=== PATIENT | female | born 1935 | race Caucasian/White ===

== ENCOUNTER → 2017-06-17 | Outpatient (CLI) | payer MEDICARE, OTHER ==
--- NOTE | 2017-06-17 09:49 | XR ---
Right wrist HISTORY: Pain 4 views of the right wrist, no comparisons Some remodeling present at the radiocarpal joint. Joint space loss, hypertrophic change present at th e carpometacarpal joint of the first digit. Alignment is maintained. Bone mineralization is reduced. No fracture or dislocation. IMPRESSION: Osteoarthritis.
== END | disposition home or self-care (01) ==
LOC: RADXRMAIN 09:05
PROVIDERS: ATTEND Internal Medicine
DX: M19.031 Primary osteoarthritis, right wrist (principal)

== ENCOUNTER → 2018-09-21 | Outpatient (CLI) | payer MEDICARE, OTHER ==
--- NOTE | 2018-09-21 12:01 | MR ---
EXAMINATION TYPE: MR brain and iac wo/w con DATE OF EXAM: 09/21/2018 COMPARISON: NONE HISTORY: Acoustic nerve disorder. Left-sided diplopia and weakness. No hearing loss or dizziness per patient history sheet. TECHNIQUE: Multiplanar, multisequence images of the brain and brainstem is performed without and with IV contras t, utilizing 7.5 mL intravenous Gadavist . FINDINGS: There is encephalomalacia from a prior lacunar infarct within the deep white matter of the right padmini na radiata just cranial to the basal ganglia. Nonspecific T2/FLAIR hyperintensity is seen within the case, central midbrain, insular cortices, and periventricular as well as subcortical white matter. Th is is overall moderate burden. There is no abnormal enhancement of these white matter changes. Diffusion weighted images demonstrate no evidence of a recent infarct or other diffusion abnormality. There is no extra-axial fluid collection. The ventricular system and cisternal spaces are normal i n size and appearance. The brain volume is age appropriate. Midline structures demonstrate normal morphology. The craniocervical junction appears within normal limits. Post contrast images demonstrate no abnormal enhancement. The left vertebral artery is noted to be diminutive in caliber. The dural venous sinuses appear patent. There is mild mucosal thickenin g of the ethmoid sinuses. The remaining visualized sinuses are clear and the globes are intact. There is no suspicious enhancement along the courses of the 7th or 8th cranial nerves. No cerebellar pontine angle mass is seen. IMPRESSION: 1. No evidence of abnormal intracranial enhancement. No cerebellar pontine angle mass or abnormal enh ancement of the 7th or 8th cranial nerves. 2. Old lacunar infarct of the right mendoza radiata. 3. 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
== END | disposition home or self-care (01) ==
LOC: RADMRIMAIN 09:45
PROVIDERS: ATTEND Otolaryngology
DX: R90.89 Other abnormal findings on diagnostic imaging of central nervous system (principal); I73.9 Peripheral vascular disease, unspecified
CPT/HCPCS: 70553; A9585

== ENCOUNTER → 2019-04-14 | Outpatient (CLI) | payer MEDICARE, OTHER ==
--- NOTE | 2019-04-14 14:37 | BD ---
EXAMINATION TYPE: Axial Bone Density DATE OF EXAM: 04/14/2019 COMPARISON: NONE CLINICAL HISTORY: M 86.80 Height: 59 IN Weight: 188 LBS FRAX RISK QUESTIONS: Glucocorticoids (More than 3mos): YES 4 MG/DAY FOR 11 MONTHS (Ex: prednisone, prednisolone, methylprednisolone, dexamethasone, and hydrocortisone). RISK FACTORS HISTORY OF: Active: YES Postmenopausal woman: AGE 52 Lost more than 2 inches in height since high school: YES 3" MEDICATIONS: Prednisone or other steroids: YES 4 MG/DAY FOR 11 MONTHS Thyroid Medications: YES Which medication: Levothyroxine LIOTHYRONINE How Lon+ YEARS Osteoporosis Medications: NOT NOW Which medication: Prolia How Long: TOOK FOR 2 YEARS. Additional Medications: CALCIUM, VIT D,COLACE, GLUCOSAMINE, KRILL OIL, LEVOTHYROXINE, LIOTHYRONINE, M AGNESIUM, OCUVITE, OMEPRAZOLE, REQUIP, VIT C, PREDNISONE EXAM MEASUREMENTS: Bone mineral densitometry was performed using the [employer] System. Bone mineral density as measured about the Lumbar spine is: ----- L1-L4(G/cm2): 0.942 T Score Values are as follows: ----- L2: -1.8 ----- L3: -1.2 ----- L4: -2.1 ----- L1-L4: -2.0 Bone mineral density BASELINE Bone mineral density about the R hip (g/cm2): 0.745 Bone mineral density about the L hip (g/cm2): 0.674 T Score values are as follows: -----R Neck: -2.1 -----L Neck: -2.6 -----R Total: -1.6 -----L Total: -2.1 Bone mineral density BASELINE IMPRESSION: Osteoporosis (T Score less than -2.5) with regards to the left femoral neck. There is increased fracture risk and therapy is usually indicated based on age. Re-Screen 1-2 years. NOTE: T-SCORE=SD OF THE YOUNG ADULT MEAN.
== END | disposition home or self-care (01) ==
LOC: RADBDWWP 12:22
PROVIDERS: ATTEND Internal Medicine Rheumatology
DX: M81.0 Age-related osteoporosis without current pathological fracture (principal)
CPT/HCPCS: 77080

== ENCOUNTER → 2019-04-19 | Outpatient (CLI) | payer MEDICARE, OTHER ==
[2019-04-19 16:41] LABS: African American GFR (CKD) >90 (>60 ml/min/1.73 sqM); Blood Urea Nitrogen 14 mg/dL (7-17)
--- NOTE | 2019-04-20 08:46 | CT ---
EXAMINATION TYPE: CT chest wo/w con DATE OF EXAM: 04/19/2019 COMPARISON: None HISTORY: Hilar lymphadenopathy, localized enlarged lymphnodes CT DLP: 891.80 mGycm Automated exposure control for dose reduction was used. CONTRAST: CT scan of the chest is performed without and with IV Contrast, patient injected with 100 mL of Isovu e 300. FINDINGS: LUNGS: Left upper lobe parenchymal scarring noted. No focal consolidation. There is no pleural effusi on or pneumothorax seen. The tracheobronchial tree is patent. MEDIASTINUM: There are no greater than 1 cm hilar or mediastinal lymph nodes. No pericardial effusi on is seen. Thoracic aorta is of normal caliber. The heart is not enlarged. No evidence for hilar ad enopathy or mass. UPPER ABDOMEN: There is evidence of fatty hepatic infiltration.Moderate to large fixed hiatal hernia. OTHER: No additional significant abnormality is seen. IMPRESSION: 1. No evidence for hilar adenopathy. 2. COPD with areas of parenchymal scarring. No infiltrate or mass. 3. Moderate to large fixed hiatal hernia.
== END | disposition home or self-care (01) ==
LOC: RADCTMAIN 15:34
PROVIDERS: ATTEND Internal Medicine Rheumatology
DX: J44.9 Chronic obstructive pulmonary disease, unspecified (principal); R59.0 Localized enlarged lymph nodes
CPT/HCPCS: 82565; 84520; 71270; 36415; Q9967

== ENCOUNTER 2020-04-20 14:08 | Emergency (ER) | payer MEDICARE, OTHER ==
[2020-04-20 14:24] VITALS: RESP 18; TEMP 98.5
--- NOTE | 2020-04-20 14:30 | ED ---
Fall HPI - General Chief Complaint: Fall Stated Complaint: Fall Time Seen by Provider: 04/20/20 14:15 Source: patient, EMS Mode of arrival: EMS - History of Present Illness Initial Comments: Dictation was produced using [employer] dictation software. please excuse any grammatical, word or spelling errors. This patient was cared for during a federal and state declared state of emergency secondary to Covid 19 Chief Complaint: 84-year-old female presents after fall. History of Present Illness: 84-year-old female she states she was bending over and when she tripped on a rock causing her to fall forward and striking the left side of her head. Patient hasn't lost consciousness patient is complaining of mild headache. She does not have any neck pain. She does not take any blood thinners. Patient has a numb single and paresthesias. She does not want any pa in medications. And if she has any serious injury she does not want to be resuscitated. The ROS documented in this emergency department record has been reviewed and confirmed by me. Those systems with pertinent positive or negative responses have been documented in the HPI. All other systems are other negative and/or noncontributory. PHYSICAL EXAM: General Impression: Alert and oriented x3, not in acute distress HEENT: Hematoma with a 1 cm laceration over the temporal left head, extra-ocular movements intact, pupils equal and reactive to light bilaterally, mucous membranes moist. Cardiovascular: Heart regular rate and rhythm Chest: Able to complete full sentences, no retractions, no tachypnea Abdomen: abdomen soft, non-tender, non-distended, no organomegaly Musculoskeletal: Pulses present and equal in all extremities, no peripheral edema Motor: no focal deficits noted Neurological: CN II-XII grossly intact, no focal motor or sensory deficits noted Skin: Intact with no visualized rashes Psych: Normal affect and mood ED course: 84-year-old presents after mechanical fall and head injury. All signs upon arrival are within acceptable limits. No other traumatic injuries noted. Laboratory evaluation obtained. CBC, coag panel, metabolic panel is unremarkable. Computed tomography scan of the head and C-spine was obtained shows no acute processes. There is however appearance of a left temporal scalp hematoma and laceration. Laceration was repaired with 2 juan r. Still to have the juan r removed in approximately one week. The temperature was discussed patient patient discharge. - Related Data Home Medications Medication Instructions Recorded Confirmed Ascorbic Acid [Vitamin C with Anahi 500 mg PO DAILY 01/20/16 01/20/16 Hips] Calcium Carbonate/Vitamin D3 2 tab PO DAILY 01/20/16 01/20/16 [Calcium 600 + Vit D Tablet] Cholecalciferol [Vitamin D3] 2,000 unit PO DAILY 01/20/16 01/20/16 Denosumab [Prolia] 60 mg SQ Q180D 01/20/16 01/20/16 Docusate [Colace] 100 mg PO DAILY PRN 01/20/16 01/20/16 Glucosamine Sulfate 1,000 mg PO DAILY 01/20/16 01/20/16 Krill/Om-3/Dha/Epa/Phospho/Ast 1 cap PO DAILY 01/20/16 01/20/16 [[place]-3 Krill Oil 300 mg Sfgl] L.acidoph,Paracasei, B.lactis 1 cap PO DAILY PRN 01/20/16 01/20/16 [Probiotic] Levothyroxine Sodium [Synthroid] 75 mcg PO DAILY 01/20/16 01/20/16 Liothyronine Sodium [Cytomel] 5 mcg PO DAILY 01/20/16 01/20/16 Magnesium Gluconate [Magonate] 500 mg PO DAILY 01/20/16 01/20/16 Omeprazole 20 tab PO BID 01/20/16 01/20/16 Turmeric Root Extract [Turmeric] 500 mg PO DAILY 01/20/16 01/20/16 Vits A,C,E/Lutein/Minerals 1 tab PO DAILY 01/20/16 01/20/16 [Ocuvite with Lutein Tablet] Previous Rx's Medication Instructions Recorded Ciprofloxacin HCl [Cipro] 500 mg PO Q12HR #6 tablet 01/20/16 Allergies Allergy/AdvReac Type Severity Reaction Status Date / Time latex Allergy Rash/Hives Verified 04/20/20 14:18 Sulfa (Sulfonamide Allergy Rash/Hives Verified 04/20/20 14:18 Antibiotics) Review of Systems ROS Statement: Those systems with pertinent positive or pertinent negative responses have been documented in the HPI. ROS Other: All systems not noted in ROS Statement are negative. Past Medical History Past Medical History: GI Bleed, Thyroid Disorder Additional Past Medical History / Comment(s): CVA History of Any Multi-Drug Resistant Organisms: None Reported Past Surgical History: Tubal Ligation Additional Past Surgical History / Comment(s): wrist Past Psychological History: No Psychological Hx Reported Smoking Status: Never smoker Past Alcohol Use History: Daily, Occasional Past Drug Use History: None Reported General Exam Limitations: no limitations Course Vital Signs 04/20/20 04/20/20 14:18 14:37 Temperature 98.5 F Pulse Rate 57 L 60 Respiratory 18 18 Rate Blood Pressure 189/112 167/93 O2 Sat by Pulse 97 96 Oximetry Procedures - Laceration Laceration #1 Consent Obtained: verbal consent Indication: laceration Site: scalp Description: linear Anesthetic Used: lidocaine 1%, with epi Anesthesia Technique: local infiltration (1 cm) Size of Sutures: other (Staple, 2) Patient Tolerated Procedure: well Medical Decision Making - Lab Data Result diagrams: 04/20/20 14:36 04/20/20 14:36 Lab Results 04/20/20 04/20/20 04/20/20 Range/Units 14:36 14:36 14:36 WBC 5.7 (3.8-10.6) k/uL RBC 5.08 (3.80-5.40) m/uL Hgb 13.7 (11.4-16.0) gm/dL Hct 43.7 (34.0-46.0) % MCV 86.0 (80.0-100.0) fL MCH 26.9 (25.0-35.0) pg MCHC 31.3 (31.0-37.0) g/dL RDW 15.1 (11.5-15.5) % Plt Count 126 L (150-450) k/uL Neutrophils % 52 % Lymphocytes % 31 % Monocytes % 7 % Eosinophils % 6 % Basophils % 1 % Neutrophils # 3.0 (1.3-7.7) k/uL Lymphocytes # 1.7 (1.0-4.8) k/uL Monocytes # 0.4 (0-1.0) k/uL Eosinophils # 0.3 (0-0.7) k/uL Basophils # 0.0 (0-0.2) k/uL Hypochromasia Slight PT 10.6 (9.0-12.0) sec INR 1.0 (<1.2) APTT 24.3 (22.0-30.0) sec Sodium 138 (137-145) mmol/L Potassium 4.3 (3.5-5.1) mmol/L Chloride 109 H (98-107) mmol/L Carbon Dioxide 22 (22-30) mmol/L Anion Gap 7 mmol/L BUN 12 (7-17) mg/dL Creatinine 0.54 (0.52-1.04) mg/dL Est GFR (CKD-EPI)AfAm >90 (>60 ml/min/1.73 sqM) Est GFR (CKD-EPI)NonAf 88 (>60 ml/min/1.73 sqM) Glucose 118 H (74-99) mg/dL Calcium 9.2 (8.4-10.2) mg/dL Magnesium 1.8 (1.6-2.3) mg/dL Total Bilirubin 0.9 (0.2-1.3) mg/dL AST 31 (14-36) U/L ALT 15 (4-34) U/L Alkaline Phosphatase 67 (38-126) U/L Total Protein 6.5 (6.3-8.2) g/dL Albumin 3.9 (3.5-5.0) g/dL Disposition Clinical Impression: Fall Disposition: HOME SELF-CARE Is patient prescribed a controlled substance at d/c from ED?: No Referrals: Alexus Ramirez MD [Primary Care Provider] - 1-2 days Time of Disposition: 15:35
[2020-04-20 14:45] LABS: Basophils % (A) 1 %; Eosinophils # (A) 0.3 k/uL (0-0.7); Eosinophils % (A) 6 %; HCT 43.7 % (34.0-46.0); HGB 13.7 gm/dL (11.4-16.0); Hypochromasia Slight; Lymphocytes # (A) 1.7 k/uL (1.0-4.8); Lymphocytes % (A) 31 %; MCH 26.9 pg (25.0-35.0); MCHC 31.3 g/dL (31.0-37.0); Mean Platelet Volume 10.1; Monocytes # (A) 0.4 k/uL (0-1.0); Monocytes % (A) 7 %; Neutrophils % (A) 52 %; Platelet Count 126 k/uL (150-450); RBC 5.08 m/uL (3.80-5.40); RDW 15.1 % (11.5-15.5); WBC 5.7 k/uL (3.8-10.6)
[2020-04-20 15:05] LABS: ALT 15 U/L (4-34); AST 31 U/L (14-36); African American GFR (CKD) >90 (>60 ml/min/1.73 sqM); Albumin 3.9 g/dL (3.5-5.0); Alkaline Phosphatase 67 U/L (38-126); Anion Gap 7 mmol/L; Blood Urea Nitrogen 12 mg/dL (7-17); Calcium 9.2 mg/dL (8.4-10.2); Carbon Dioxide 22 mmol/L (22-30); Chloride 109 mmol/L (98-107); Glucose 118 mg/dL (74-99); Magnesium 1.8 mg/dL (1.6-2.3); Non-African American GFR(CKD) 88 (>60 ml/min/1.73 sqM); Potassium 4.3 mmol/L (3.5-5.1); Sodium 138 mmol/L (137-145); Total Bilirubin 0.9 mg/dL (0.2-1.3); Total Protein 6.5 g/dL (6.3-8.2)
[2020-04-20 15:10] LABS: Partial Thromboplastin Time 24.3 sec (22.0-30.0); Prothrombin Time 10.6 sec (9.0-12.0)
--- NOTE | 2020-04-20 15:11 | CT ---
EXAMINATION TYPE: CT brain gloria wo con DATE OF EXAM: 04/20/2020 COMPARISON: None HISTORY: Fall. Pain. CT DLP: mGycm Automated exposure control for dose reduction was used. There is cerebral cortical atrophy. There is no mass effect nor midline shift. There is no sign of in tracranial hemorrhage. There is some patchy white matter hypodensity in the right internal capsule. C alvarium is intact. There is left temporal scalp hematoma and soft tissue air bubbles consistent with laceration. The skull base is intact. There is normal aeration of the temporal bones. Cervical vertebra have fairly normal alignment. There is degenerative disc space narrowing from C3 to C7 with spurring of the endplates. There is mild multilevel cervical facet arthropathy. Skull base i s intact. I see no bony destructive process. IMPRESSION: Cerebral atrophy. Chronic small vessel ischemia and old lacunar infarcts right internal capsule. Multilevel cervical spondylotic changes. No fracture seen.
[2020-04-20] MEDS ORDERED: LIDOCAINE 1%-EPI 1:100,000 20 ML VIAL SQ STA (15:18)
[2020-04-20] MEDS ORDERED: ACET/COD 300 MG/30 MG STARTER PACK 6 TAB BTL PO STA (15:35)
[2020-04-20 15:50] VITALS: BP 169/78; PULSE 57
== END 2020-04-20 15:51 | disposition home or self-care (01) ==
LOC: EC 14:08
DX: S01.01XA Laceration without foreign body of scalp, initial encounter (principal); E07.9 Disorder of thyroid, unspecified; Z79.890 Hormone replacement therapy; Z88.2 Allergy status to sulfonamides; Z91.040 Latex allergy status; Z66 Do not resuscitate; Z86.73 Personal history of transient ischemic attack (TIA), and cerebral infarction without residual deficits; W01.198A Fall on same level from slipping, tripping and stumbling with subsequent striking against other object, initial encounter; Y92.89 Other specified places as the place of occurrence of the external cause
CPT/HCPCS: 12001; 36415; 70450; 72125; 80053; 83735; 85025; 85610; 85730; 93005; 99284

== ENCOUNTER 2022-07-20 11:37 | Emergency (ER) | payer MEDICARE, OTHER ==
[2022-07-20 12:16] VITALS: TEMP 98.2
[2022-07-20 14:35] VITALS: BP 162/69; PULSE 70; RESP 18
--- NOTE | 2022-07-20 14:44 | ED ---
General Adult HPI - General Source: patient, RN notes reviewed Mode of arrival: ambulatory Limitations: no limitations <Dc Guerra - Last Filed: 07/20/22 14:44> <Obed Montero - Last Filed: 07/20/22 17:12> - General Chief complaint: Recheck/Abnormal Lab/Rx Stated complaint: vision issue, hyper Time Seen by Provider: 07/20/22 14:30 - History of Present Illness Initial comments: 86-year-old female presents emergency Department with multiple complaints. Patient states that she went to play cards earlier today around 10 when she fell she had some flashing lights in her left eye pupil that she was playing cards with stated that she was acting very hyper and her pupils were small. 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 Patient denies any chest pain palpitations shortness of breath patient states she hadn't mild headache but that resolved. Patient states her symptoms only lasted a short period of time she had no associated focal weakness or noted confusion. Patient states that she's been having increasing issues with her hemorrhoids states that she has seen a specialist for family also told nurse there was no surgical option for her. She did worm picker some Dermablast topical pain relief is not currently using any steroid cream or Tucks pads patient denies any nausea vomiting she states that she is concerned she may have UTI though she has no complaints of dysuria or Urinary frequency. (Dc Guerra) - Related Data Home Medications Medication Instructions Recorded Confirmed Ascorbic Acid [Vitamin C with Anahi 500 mg PO DAILY 01/20/16 09/03/21 Hips] Calcium Carbonate/Vitamin D3 2 tab PO DAILY 01/20/16 09/03/21 [Calcium 600 + Vit D Tablet] Cholecalciferol [Vitamin D3] 2,000 unit PO DAILY 01/20/16 09/03/21 Denosumab [Prolia] 60 mg SQ Q180D 01/20/16 09/03/21 Docusate [Colace] 100 mg PO DAILY PRN 01/20/16 09/03/21 Glucosamine Sulfate 1,000 mg PO DAILY 01/20/16 09/03/21 Krill/Om-3/Dha/Epa/Phospho/Ast 1 cap PO DAILY 01/20/16 09/03/21 [[place]-3 Krill Oil 300 mg Sfgl] L.acidoph,Paracasei, B.lactis 1 cap PO DAILY PRN 01/20/16 09/03/21 [Probiotic] Levothyroxine Sodium [Synthroid] 75 mcg PO DAILY 01/20/16 09/03/21 Liothyronine Sodium [Cytomel] 5 mcg PO DAILY 01/20/16 09/03/21 Magnesium Gluconate [Magonate] 500 mg PO DAILY 01/20/16 09/03/21 Omeprazole 20 tab PO BID 01/20/16 09/03/21 Turmeric Root Extract [Turmeric] 500 mg PO DAILY 01/20/16 09/03/21 Vits A,C,E/Lutein/Minerals 1 tab PO DAILY 01/20/16 09/03/21 [Ocuvite with Lutein Tablet] Previous Rx's Medication Instructions Recorded Ciprofloxacin HCl [Cipro] 500 mg PO Q12HR #6 tablet 01/20/16 Cephalexin [Keflex] 500 mg PO Q12HR 7 Days #14 cap 07/20/22 Allergies Allergy/AdvReac Type Severity Reaction Status Date / Time latex Allergy Rash/Hives Verified 07/20/22 12:16 Sulfa (Sulfonamide Allergy Rash/Hives Verified 07/20/22 12:16 Antibiotics) Review of Systems ROS Other: All systems not noted in ROS Statement are negative. <Dc Guerra - Last Filed: 07/20/22 14:44> ROS Other: All systems not noted in ROS Statement are negative. <Obed Montero - Last Filed: 07/20/22 17:12> ROS Statement: Those systems with pertinent positive or pertinent negative responses have been documented in the HPI. Past Medical History Past Medical History: GI Bleed, Thyroid Disorder Additional Past Medical History / Comment(s): CVA History of Any Multi-Drug Resistant Organisms: None Reported Past Surgical History: Tubal Ligation Additional Past Surgical History / Comment(s): wrist Past Psychological History: No Psychological Hx Reported Smoking Status: Never smoker Past Alcohol Use History: None Reported Past Drug Use History: None Reported <Dc Guerra - Last Filed: 07/20/22 14:44> General Exam Limitations: no limitations General appearance: alert, in no apparent distress Head exam: Present: atraumatic, normocephalic, normal inspection Eye exam: Present: normal appearance, PERRL, EOMI. Absent: scleral icterus, conjunctival injection, periorbital swelling ENT exam: Present: normal exam, normal oropharynx, mucous membranes moist Neck exam: Present: normal inspection, full ROM. Absent: tenderness, menin gismus, lymphadenopathy Respiratory exam: Present: normal lung sounds bilaterally. Absent: respiratory distress, wheezes, rales, rhonchi, stridor Cardiovascular Exam: Present: regular rate, normal rhythm, normal heart sounds. Absent: systolic murmur, diastolic murmur, rubs, gallop, clicks GI/Abdominal exam: Present: soft, normal bowel sounds. Absent: distended, tenderness, guarding, rebound, rigid Extremities exam: Present: normal inspection, full ROM, normal capillary refill. Absent: tenderness, pedal edema, joint swelling, calf tenderness Back exam: Present: normal inspection, full ROM. Absent: tenderness Neurological exam: Present: alert, oriented X3, CN II-XII intact, reflexes normal, other (GCS 15, NIH 0, finger to nose intact bilat). Absent: motor sensory deficit Skin exam: Present: warm, dry, intact, normal color. Absent: rash <Dc Guerra - Last Filed: 07/20/22 14:44> Course Vital Signs 07/20/22 07/20/22 12:13 14:33 Temperature 98.2 F Pulse Rate 65 70 Respiratory 20 18 Rate Blood Pressure 131/75 162/69 O2 Sat by Pulse 98 97 Oximetry EKG Findings - EKG Comments: EKG Findings:: EKG performed at 14:27 sinus rhythm with first-degree AV block rate of 69 ID 277 QRS 94 QT/QTC 413/432 - EKG Results: EKG: interpreted by ERMD <Dc Guerra - Last Filed: 07/20/22 14:44> Medical Decision Making - Lab Data Result diagrams: 07/20/22 14:38 07/20/22 14:38 <Obed Montero - Last Filed: 07/20/22 17:12> - Medical Decision Making Patient is an 86-year-old female who was initially seen by a mid-level provider earlier in the waiting room and worked up on the patient was in the waiting room due to large emergency department volumes who presents emergency Department with multiple complaints. Primary complaint including an episode of seeing lights out of her left eye earlier today which has since resolved. Lasted for about 30 minutes to an hour earlier this morning. Has no residual deficits. No other deficits at that time, including weakness, numbness. Denied any lightheadedness or weakness. Does believe she may have a UTI. Also endorses a long history of hemorrhoids, however denies any worsening complaints regarding these including bleeding, pain beyond her normal pain. She denies any chest pain, shortness of breath, abdominal pain, nausea, vomiting, diarrhea. Does endorse a mild amount of dysuria and burning when team. Denies any hematuria. Presents for further evaluation at this time. I evaluated the patient in the ATP Room.NIH is 0 at this time. She has no acute complaints. No neuro deficits. Able to ambulate without difficulty. Vital signs within acceptable limits. The patient's workup had returned by the time I evaluated the patient was remarkable for somewhat chronic anemia with hemoglobin of 9.2. Patient denies any active bleed, any signs or symptoms of symptomatic anemia. States she does have hemorrhoids and occasional bleed but none at this time. Is not on blood thinners. Troponin was undetectable. EKG was obtained and signed by the prior physician and showed no signs of acute ischemia. Urinalysis was remarkable for signs of a possible early UTI with a moderate amount of leukocyte esterase as well as [address] brain as interpreted by myself reveals no evidence for acute intracranial process. No bleed, mass effect. Radiology concurs with this and also sees signs of a possible remote old ischemia. I did discuss with the patient the results of her workup. I did perform a rectal exam in the presence of a female staff member. She does have nonthrombosed hemorrhoids, external. No active bleeding. Rectum is patent. I did discuss the results of her workup with her. As she is symptomatic for UTI we will begin treatment. She will receive a dose of IV Rocephin as well as anabolic for home. She would like to go home at this time and I do believe that is reasonable. I instructed strict return precautions, as well as her to follow up with her PCP in the next 24-48 hours. She was in agreement this plan. I will provide the patient with a prescription for Keflex. I instructed the patient to follow up with their PCP in the next 1-3 days. . I explained that the patient should return to the emergency department if they experience any worsening symptoms. Strict return precautions were discussed with the patient. The patient expressed understanding of these instructions. I answered all questions that the patient had. The patient was discharged home in good condition with their prescriptions and follow up information. (Obed Montero) - Lab Data Lab Results 07/20/22 07/20/22 07/20/22 Range/Units 14:38 14:38 14:38 WBC 5.8 (3.8-10.6) k/uL RBC 4.22 (3.80-5.40) m/uL Hgb 9.2 L (11.4-16.0) gm/dL Hct 30.5 L (34.0-46.0) % MCV 72.2 L (80.0-100.0) fL MCH 21.7 L (25.0-35.0) pg MCHC 30.1 L (31.0-37.0) g/dL RDW 15.9 H (11.5-15.5) % Plt Count 189 (150-450) k/uL MPV 10.4 Neutrophils % 61 % Lymphocytes % 21 % Monocytes % 10 % Eosinophils % 4 % Basophils % 1 % Neutrophils # 3.6 (1.3-7.7) k/uL Lymphocytes # 1.2 (1.0-4.8) k/uL Monocytes # 0.6 (0-1.0) k/uL Eosinophils # 0.2 (0-0.7) k/uL Basophils # 0.1 (0-0.2) k/uL Hypochromasia Marked Poikilocytosis Slight Microcytosis Moderate PT 10.4 (9.0-12.0) sec INR 1.0 (<1.2) APTT 24.7 (22.0-30.0) sec Sodium 135 L (137-145) mmol/L Potassium 4.4 (3.5-5.1) mmol/L Chloride 106 (98-107) mmol/L Carbon Dioxide 21 L (22-30) mmol/L Anion Gap 8 mmol/L BUN 8 (7-17) mg/dL Creatinine 0.47 L (0.52-1.04) mg/dL Est GFR (CKD-EPI)AfAm >90 (>60 ml/min/1.73 sqM) Est GFR (CKD-EPI)NonAf >90 (>60 ml/min/1.73 sqM) Glucose 111 H (74-99) mg/dL Calcium 8.8 (8.4-10.2) mg/dL Magnesium 1.9 (1.6-2.3) mg/dL Total Bilirubin 0.7 (0.2-1.3) mg/dL AST 24 (14-36) U/L ALT 10 (4-34) U/L Alkaline Phosphatase 60 (38-126) U/L Troponin I (0.000-0.034) ng/mL Total Protein 6.5 (6.3-8.2) g/dL Albumin 3.7 (3.5-5.0) g/dL TSH 1.500 (0.465-4.680) mIU/L Urine Color Urine Appearance (Clear) Urine pH (5.0-8.0) Ur Specific Cle[place] (1.001-1.035) Urine Protein (Negative) Urine Glucose (UA) (Negative) Urine Ketones (Negative) Urine Blood (Negative) Urine Nitrite (Negative) Urine Bilirubin (Negative) Urine Urobilinogen (<2.0) mg/dL Ur Leukocyte Esterase (Negative) Urine RBC (0-5) /hpf Urine WBC (0-5) /hpf Ur Squamous Epith Cells (0-4) /hpf 07/20/22 07/20/22 Range/Units 14:38 14:45 WBC (3.8-10.6) k/uL RBC (3.80-5.40) m/uL Hgb (11.4-16.0) gm/dL Hct (34.0-46.0) % MCV (80.0-100.0) fL MCH (25.0-35.0) pg MCHC (31.0-37.0) g/dL RDW (11.5-15.5) % Plt Count (150-450) k/uL MPV Neutrophils % % Lymphocytes % % Monocytes % % Eosinophils % % Basophils % % Neutrophils # (1.3-7.7) k/uL Lymphocytes # (1.0-4.8) k/uL Monocytes # (0-1.0) k/uL Eosinophils # (0-0.7) k/uL Basophils # (0-0.2) k/uL Hypochromasia Poikilocytosis Microcytosis PT (9.0-12.0) sec INR (<1.2) APTT (22.0-30.0) sec Sodium (137-145) mmol/L Potassium (3.5-5.1) mmol/L Chloride (98-107) mmol/L Carbon Dioxide (22-30) mmol/L Anion Gap mmol/L BUN (7-17) mg/dL Creatinine (0.52-1.04) mg/dL Est GFR (CKD-EPI)AfAm (>60 ml/min/1.73 sqM) Est GFR (CKD-EPI)NonAf (>60 ml/min/1.73 sqM) Glucose (74-99) mg/dL Calcium (8.4-10.2) mg/dL Magnesium (1.6-2.3) mg/dL Total Bilirubin (0.2-1.3) mg/dL AST (14-36) U/L ALT (4-34) U/L Alkaline Phosphatase (38-126) U/L Troponin I <0.012 (0.000-0.034) ng/mL Total Protein (6.3-8.2) g/dL Albumin (3.5-5.0) g/dL TSH (0.465-4.680) mIU/L Urine Color Light Yellow Urine Appearance Clear (Clear) Urine pH 7.0 (5.0-8.0) Ur Specific [place] 1.004 (1.001-1.035) Urine Protein Negative (Negative) Urine Glucose (UA) Negative (Negative) Urine Ketones Negative (Negative) Urine Blood Negative (Negative) Urine Nitrite Negative (Negative) Urine Bilirubin Negative (Negative) Urine Urobilinogen <2.0 (<2.0) mg/dL Ur Leukocyte Esterase Moderate H (Negative) Urine RBC 1 (0-5) /hpf Urine WBC 24 H (0-5) /hpf Ur Squamous Epith Cells 4 (0-4) /hpf Disposition <Dc Guerra - Last Filed: 07/20/22 14:44> Is patient prescribed a controlled substance at d/c from ED?: No Time of Disposition: 16:49 <Obed Montero - Last Filed: 07/20/22 17:12> Clinical Impression: UTI (urinary tract infection), Hemorrhoid Disposition: HOME SELF-CARE Condition: Good Instructions (If sedation given, give patient instructions): Urinary Tract Infection in Women (ED) Prescriptions: Cephalexin [Keflex] 500 mg PO Q12HR 7 Days #14 cap Referrals: Fabrizio Contreras MD [Primary Care Provider] - 1-2 days Trena Ferguson MD [STAFF PHYSICIAN] - 1-2 days Terry Muniz MD [STAFF PHYSICIAN] - 1-2 days
[2022-07-20 14:56] LABS: ALT 10 U/L (4-34); AST 24 U/L (14-36); African American GFR (CKD) >90 (>60 ml/min/1.73 sqM); Albumin 3.7 g/dL (3.5-5.0); Alkaline Phosphatase 60 U/L (38-126); Anion Gap 8 mmol/L; Blood Urea Nitrogen 8 mg/dL (7-17); Calcium 8.8 mg/dL (8.4-10.2); Carbon Dioxide 21 mmol/L (22-30); Chloride 106 mmol/L (98-107); Glucose 111 mg/dL (74-99); Magnesium 1.9 mg/dL (1.6-2.3); Non-African American GFR(CKD) >90 (>60 ml/min/1.73 sqM); Potassium 4.4 mmol/L (3.5-5.1); Sodium 135 mmol/L (137-145); Total Bilirubin 0.7 mg/dL (0.2-1.3); Total Protein 6.5 g/dL (6.3-8.2)
[2022-07-20 15:15] LABS: Partial Thromboplastin Time 24.7 sec (22.0-30.0); Prothrombin Time 10.4 sec (9.0-12.0)
--- NOTE | 2022-07-20 15:15 | CT ---
EXAMINATION TYPE: CT brain wo con DATE OF EXAM: 07/20/2022 COMPARISON: 04/20/2020 HISTORY: visual changes CT DLP: 1106.4 mGycm Automated exposure control for dose reduction was used. FINDINGS: There is mild to moderate generalized degenerative change. There is a low attenuation the white matte r which is nonspecific. Most typical of remote microvascular ischemia. There is intracranial atherosc lerotic changes. Orbits are symmetric. Calvarium intact. Sinuses are clear. IMPRESSION: DEGENERATIVE AND NONSPECIFIC WHITE MATTER CHANGE MOST TYPICAL OF REMOTE ISCHEMIA.
[2022-07-20 15:27] LABS: Appearance,Urine Clear (Clear); Bilirubin,Urine Negative (Negative); Blood,Urine Negative (Negative); Color,Urine Light Yellow; Glucose,Urine (UA) Negative (Negative); Ketones,Urine Negative (Negative); Leukocyte Esterase,Urine Moderate (Negative); Nitrite,Urine Negative (Negative); Protein,Urine Negative (Negative); RBC,Urine 1 /hpf (0-5); Specific Gravity,Urine 1.004 (1.001-1.035); Squamous Epithelial Cell,Urine 4 /hpf (0-4); Urobilinogen,Urine <2.0 mg/dL (<2.0); WBC,Urine 24 /hpf (0-5)
[2022-07-20 15:42] LABS: Basophils # (A) 0.1 k/uL (0-0.2); Basophils % (A) 1 %; Eosinophils # (A) 0.2 k/uL (0-0.7); Eosinophils % (A) 4 %; HCT 30.5 % (34.0-46.0); HGB 9.2 gm/dL (11.4-16.0); Hypochromasia Marked; Lymphocytes # (A) 1.2 k/uL (1.0-4.8); Lymphocytes % (A) 21 %; MCH 21.7 pg (25.0-35.0); MCHC 30.1 g/dL (31.0-37.0); MCV 72.2 fL (80.0-100.0); Mean Platelet Volume 10.4; Microcytosis Moderate; Monocytes # (A) 0.6 k/uL (0-1.0); Monocytes % (A) 10 %; Neutrophils # (A) 3.6 k/uL (1.3-7.7); Neutrophils % (A) 61 %; Platelet Count 189 k/uL (150-450); Poikilocytosis Slight; RBC 4.22 m/uL (3.80-5.40); RDW 15.9 % (11.5-15.5); WBC 5.8 k/uL (3.8-10.6)
[2022-07-20] MEDS ORDERED: cefTRIAXone IN SWFI 1,000 MG/10 ML SYRINGE IVP STA (16:47)
== END 2022-07-20 17:09 | disposition home or self-care (01) ==
LOC: EC 11:37
DX: N39.0 Urinary tract infection, site not specified (principal); K64.9 Unspecified hemorrhoids; E07.9 Disorder of thyroid, unspecified; Z88.2 Allergy status to sulfonamides; Z91.040 Latex allergy status; Z79.890 Hormone replacement therapy
CPT/HCPCS: 36415; 93005; 80053; 84443; 83735; 84484; 85025; 85610; 85730; 81001; 87086; 70450; 99284; 96374; J0696

== ENCOUNTER 2023-05-15 11:44 | Emergency (ER) | payer MEDICARE, OTHER ==
[2023-05-15] MEDS ORDERED: SODIUM CHLORIDE 0.9% 500 ML 500 ML IV STA (12:04)
[2023-05-15 12:37] LABS: Basophils % (A) 1 %; Eosinophils # (A) 0.2 k/uL (0-0.7); Eosinophils % (A) 4 %; HCT 37.2 % (34.0-46.0); HGB 12.1 gm/dL (11.4-16.0); Hypochromasia Slight; Lymphocytes # (A) 0.9 k/uL (1.0-4.8); Lymphocytes % (A) 19 %; MCHC 32.6 g/dL (31.0-37.0); Mean Platelet Volume 9.5; Monocytes # (A) 0.4 k/uL (0-1.0); Monocytes % (A) 8 %; Neutrophils # (A) 3.2 k/uL (1.3-7.7); Neutrophils % (A) 66 %; Platelet Count 164 k/uL (150-450); RDW 13.4 % (11.5-15.5); WBC 4.8 k/uL (3.8-10.6)
[2023-05-15 12:53] LABS: ALT 43 U/L (4-34); AST 30 U/L (14-36); African American GFR (CKD) >90 (>60 ml/min/1.73 sqM); Albumin 3.6 g/dL (3.5-5.0); Alkaline Phosphatase 66 U/L (38-126); Amylase 53 U/L (30-110); Anion Gap 6 mmol/L; Blood Urea Nitrogen 13 mg/dL (7-17); Carbon Dioxide 25 mmol/L (22-30); Chloride 105 mmol/L (98-107); Glucose 101 mg/dL (74-99); Lipase 193 U/L (23-300); Non-African American GFR(CKD) 89 (>60 ml/min/1.73 sqM); Potassium 4.8 mmol/L (3.5-5.1); Sodium 136 mmol/L (137-145); Total Bilirubin 0.5 mg/dL (0.2-1.3); Total Protein 6.4 g/dL (6.3-8.2)
--- NOTE | 2023-05-15 13:04 | XR ---
EXAMINATION TYPE: XR chest 2V DATE OF EXAM: 05/15/2023 12:56 PM CLINICAL INDICATION:Female, 87 years old with history of abdominal pain; [facility] COMPARISON: Chest radiographs from 09/28/2022 TECHNIQUE: XR chest 2V Frontal and lateral views of the chest. FINDINGS: Lungs/Pleura: There is flattening of the diaphragm with increased lucency of the lungs. No evidence o f pneumothorax, pleural effusion or focal consolidation. Pulmonary vascularity: Unremarkable. Heart/mediastinum: Cardiomediastinal silhouette is enlarged and stable. Musculoskeletal: No acute osseous pathology. IMPRESSION: 1. No acute cardiopulmonary disease process. 2. COPD changes.
--- NOTE | 2023-05-15 13:48 | US ---
EXAMINATION TYPE: US gallbladder DATE OF EXAM: 05/15/2023 COMPARISON: NONE CLINICAL INDICATION: Female, 87 years old with history of Elevated liver enzymes, right upper quadran t abdom; Right side pain. Portable EC exam TECHNIQUE: Multiple sonographic images of the right upper quadrant are obtained. FINDINGS: EXAM MEASUREMENTS: Liver Length: 14.3 cm Gallbladder Wall: 0.1 cm CBD: 0.7 cm Right Kidney: 10.4 x 4.6 x 5.1 cm Pancreas: Head obscured by overlying bowel gas. Possible tail calcification - 0.6 cm. Main pancrea tic duct - 2.5 mm Liver: wnl Gallbladder: posterior internal echoes with shadowing Evidence for sonographic Whtie's sign: neg CBD: wnl Right Kidney: Possible mild hydronephrosis IMPRESSION: 1. No definitive acute hepatic process. 2. Cholelithiasis suggested. 3. Mild dilation of the renal pelvis could represent extrarenal pelvis versus mild hydronephrosis.
--- NOTE | 2023-05-15 13:55 | ED ---
General Adult HPI - General Chief complaint: Recheck/Abnormal Lab/Rx Stated complaint: Dizziness, Abnormal Labs Time Seen by Provider: 05/15/23 12:00 Source: patient, RN notes reviewed, old records reviewed Mode of arrival: ambulatory Limitations: no limitations - History of Present Illness Initial comments: This is an 87-year-old female presents emergency Department complaining that she's had a little bit of a cough and she thinks she's had coded. Patient states she's also been very fatigued and weak. Patient denies any chest pain or shortness of breath. Patient denies any abdominal pain patient denies nausea vomiting or diarrhea. Patient denies any recent fever but does states she's had occasional chills. Daughter states she thinks her mother is very nervous and anxious mass was causing her visit today because she was recently told some of her liver enzymes were elevated. - Related Data Home Medications Medication Instructions Recorded Confirmed Krill/Om-3/Dha/Epa/Phospho/Ast 1 cap PO DAILY 01/20/16 09/28/22 [[place]-3 Krill Oil 300 mg Sfgl] Levothyroxine Sodium [Synthroid] 75 mcg PO DAILY 01/20/16 09/28/22 Vits A,C,E/Lutein/Minerals 1 tab PO DAILY 01/20/16 09/28/22 [Ocuvite with Lutein Tablet] Albuterol Sulfate [Albuterol 2 puff PO RT-Q4H PRN 09/28/22 09/28/22 Sulfate Hfa] Benzonatate [Tessalon Perle] 200 mg PO TID PRN 09/28/22 09/28/22 Previous Rx's Medication Instructions Recorded Pantoprazole [Protonix] 40 mg PO BID 14 Days #28 tab 09/29/22 Allergies Allergy/AdvReac Type Severity Reaction Status Date / Time latex Allergy Rash/Hives Verified 05/15/23 11:57 Sulfa (Sulfonamide Allergy Rash/Hives Verified 05/15/23 11:57 Antibiotics) Review of Systems ROS Statement: Those systems with pertinent positive or pertinent negative responses have been documented in the HPI. ROS Other: All systems not noted in ROS Statement are negative. Past Medical History Past Medical History: GI Bleed, Thyroid Disorder Additional Past Medical History / Comment(s): CVA, Duncan's esophagus, hemorrhoids History of Any Multi-Drug Resistant Organisms: None Reported Past Surgical History: Tubal Ligation Additional Past Surgical History / Comment(s): wrist Past Psychological History: No Psychological Hx Reported Smoking Status: Never smoker Past Alcohol Use History: None Reported Past Drug Use History: None Reported General Exam - General Exam Comments Initial Comments: GENERAL: Patient is well-developed and well-nourished. Patient is nontoxic and well- hydrated and is in no acute distress. ENT: Neck is soft and supple. No significant lymphadenopathy is noted. Oropharynx is clear. Moist mucous membranes. Neck has full range of motion without eliciting any pain. EYES: The sclera were anicteric and conjunctiva were pink and moist. Extraocular movements were intact and pupils were equal round and reactive to light. Eyelids were unremarkable. PULMONARY: Unlabored respirations. Good breath sounds bilaterally. No audible rales rhonchi or wheezing was noted. CARDIOVASCULAR: There is a regular rate and rhythm without any murmurs gallops or rubs. ABDOMEN: Soft and nontender with normal bowel sounds. SKIN: Skin is clear with no lesions or rashes and otherwise unremarkable. NEUROLOGIC: Patient is alert and oriented x3. Cranial nerves II through XII are grossly intact. Motor and sensory are also intact. Normal speech, volume and content. Symmetrical smile. MUSCULOSKELETAL: Normal extremities with adequate strength and full range of motion. No lower extremity swelling or edema. No calf tenderness. LYMPHATICS: No significant lymphadenopathy is noted PSYCHIATRIC: Normal psychiatric evaluation. Limitations: no limitations Course Vital Signs 05/15/23 11:55 Temperature 98.6 F Pulse Rate 63 Respiratory 20 Rate Blood Pressure 126/65 O2 Sat by Pulse 98 Oximetry Medical Decision Making - Medical Decision Making Was pt. sent in by a medical professional or institution (, PA, BAR TURNER, urgent care, hospital, or halfway...) When possible be specific @ -[place] wanted the patient to the emergency department to be evaluated Did you speak to anyone other than the patient for history (EMS, parent, family, police, friend...)? What history was obtained from this source @ -Daughter was in the room good part of the history Did you review nursing and triage notes (agree or disagree)? Why? @ -I reviewed and agree with nursing and triage notes Were old charts reviewed (outside hosp., previous admission, EMS record, old EKG, old radiological studies, urgent care reports/EKG's, halfway records)? Report findings @ -I reviewed prior charts in prior lab work Differential Diagnosis (chest pain, altered mental status, abdominal pain women, abdominal pain men, vaginal bleeding, weakness, fever, dyspnea, syncope, headache, dizziness, GI bleed, back pain, seizure, CVA, palpatations, mental health, musculoskeletal)? @ - COVID, upper after infection, pneumonia, bronchitis EKG interpreted by me (3pts min.). @ -As above X-rays interpreted by me (1pt min.). @ -Chest x-ray shows no acute abnormality CT interpreted by me (1pt min.). @ -None done U/S interpreted by me (1pt. min.). @ -Ultrasound showed cholelithiasis no obvious cholecystitis What testing was considered but not performed or refused? (CT, X-rays, U/S, labs)? Why? @ -None What meds were considered but not given or refused? Why? @ -None Did you discuss the management of the patient with other professionals (professionals i.e. , PA, BAR TURNER, lab, RT, psych nurse, medical social consultant, keymodule assembly machine tender, teacher, detention officer, supervisor case loading)? Give summary @ -No Was smoking cessation discussed for >3mins.? @ -No Was critical care preformed (if so, how long)? @ -No Were there social determinants of health that impacted care today? How? (Homelessness, low income, unemployed, alcoholism, drug addiction, transportation, low edu. Level, literacy, decrease access to med. care, care home, rehab)? @ -No Was there de-escalation of care discussed even if they declined (Discuss DNR or withdrawal of care, Hospice)? DNR status @ -No What co-morbidities impacted this encounter? (DM, HTN, Smoking, COPD, CAD, Cancer, CVA, ARF, Chemo, Hep., AIDS, mental health diagnosis, sleep apnea, morbid obesity)? @ -None Was patient admitted / discharged? Hospital course, mention meds given and route, prescriptions, significant lab abnormalities, going to OR and other pertinent info. @ -Patient did not want to come to the emergency department however her primary medical care doctor insisted so she came she stated she doesn't feel that bad she has a little bit of a cough. Patient denied any upper right quadrant a bdominal pain. Patient had any fever chills per patient denies any sputum production. Patient just assuming she had cold when she found out it was negative she was very comfortable going home as was the daughter taking her home Undiagnosed new problem with uncertain prognosis? @ -No Drug Therapy requiring intensive monitoring for toxicity (Heparin, Nitro, Insulin, Cardizem)? @ -No Were any procedures done? @ -No Diagnosis/symptom? @ -Upper respiratory infection Acute, or Chronic, or Acute on Chronic? @ -Acute Uncomplicated (without systemic symptoms) or Complicated (systemic symptoms)? @ -Uncomplicated Side effects of treatment? @ -No Exacerbation, Progression, or Severe Exacerbation? @ -No Poses a threat to life or bodily function? How? (Chest pain, [place], [place], pneumonia, PE, COPD, DKA, ARF, appy, cholecystitis, CVA, Diverticulitis, Homicidal, Suicidal, threat to staff... and all critical care pts) @ -No - Lab Data Result diagrams: 05/15/23 12:29 05/15/23 12:29 Lab Results 05/15/23 05/15/23 05/15/23 Range/Units 12:29 12:29 12:29 WBC 4.8 (3.8-10.6) k/uL RBC 3.80 (3.80-5.40) m/uL Hgb 12.1 (11.4-16.0) gm/dL Hct 37.2 (34.0-46.0) % MCV 98.0 (80.0-100.0) fL MCH 32.0 (25.0-35.0) pg MCHC 32.6 (31.0-37.0) g/dL RDW 13.4 (11.5-15.5) % Plt Count 164 (150-450) k/uL MPV 9.5 Neutrophils % 66 % Lymphocytes % 19 % Monocytes % 8 % Eosinophils % 4 % Basophils % 1 % Neutrophils # 3.2 (1.3-7.7) k/uL Lymphocytes # 0.9 L (1.0-4.8) k/uL Monocytes # 0.4 (0-1.0) k/uL Eosinophils # 0.2 (0-0.7) k/uL Basophils # 0.0 (0-0.2) k/uL Hypochromasia Slight Sodium 136 L (137-145) mmol/L Potassium 4.8 (3.5-5.1) mmol/L Chloride 105 (98-107) mmol/L Carbon Dioxide 25 (22-30) mmol/L Anion Gap 6 mmol/L BUN 13 (7-17) mg/dL Creatinine 0.48 L (0.52-1.04) mg/dL Est GFR (CKD-EPI)AfAm >90 (>60 ml/min/1.73 sqM) Est GFR (CKD-EPI)NonAf 89 (>60 ml/min/1.73 sqM) Glucose 101 H (74-99) mg/dL Calcium 9.0 (8.4-10.2) mg/dL Total Bilirubin 0.5 (0.2-1.3) mg/dL AST 30 (14-36) U/L ALT 43 H (4-34) U/L Alkaline Phosphatase 66 (38-126) U/L Total Protein 6.4 (6.3-8.2) g/dL Albumin 3.6 (3.5-5.0) g/dL Amylase 53 (30-110) U/L Lipase 193 (23-300) U/L Urine Color Urine Appearance (Clear) Urine pH (5.0-8.0) Ur Specific [place] (1.001-1.035) Urine Protein (Negative) Urine Glucose (UA) (Negative) Urine Ketones (Negative) Urine Blood (Negative) Urine Nitrite (Negative) Urine Bilirubin (Negative) Urine Urobilinogen (<2.0) mg/dL Ur Leukocyte Esterase (Negative) Urine RBC (0-5) /hpf Urine WBC (0-5) /hpf Urine WBC Clumps (None) /hpf Ur Squamous Epith Cells (0-4) /hpf Ur Transition Epith Cell (0-1) /hpf Coronavirus (PCR) Not Detected (Not Detectd) 05/15/23 Range/Units 14:07 WBC (3.8-10.6) k/uL RBC (3.80-5.40) m/uL Hgb (11.4-16.0) gm/dL Hct (34.0-46.0) % MCV (80.0-100.0) fL MCH (25.0-35.0) pg MCHC (31.0-37.0) g/dL RDW (11.5-15.5) % Plt Count (150-450) k/uL MPV Neutrophils % % Lymphocytes % % Monocytes % % Eosinophils % % Basophils % % Neutrophils # (1.3-7.7) k/uL Lymphocytes # (1.0-4.8) k/uL Monocytes # (0-1.0) k/uL Eosinophils # (0-0.7) k/uL Basophils # (0-0.2) k/uL Hypochromasia Sodium (137-145) mmol/L Potassium (3.5-5.1) mmol/L Chloride (98-107) mmol/L Carbon Dioxide (22-30) mmol/L Anion Gap mmol/L BUN (7-17) mg/dL Creatinine (0.52-1.04) mg/dL Est GFR (CKD-EPI)AfAm (>60 ml/min/1.73 sqM) Est GFR (CKD-EPI)NonAf (>60 ml/min/1.73 sqM) Glucose (74-99) mg/dL Calcium (8.4-10.2) mg/dL Total Bilirubin (0.2-1.3) mg/dL AST (14-36) U/L ALT (4-34) U/L Alkaline Phosphatase (38-126) U/L Total Protein (6.3-8.2) g/dL Albumin (3.5-5.0) g/dL Amylase (30-110) U/L Lipase (23-300) U/L Urine Color Colorless Urine Appearance Clear (Clear) Urine pH 6.0 (5.0-8.0) Ur Specific [place] 1.005 (1.001-1.035) Urine Protein Negative (Negative) Urine Glucose (UA) Negative (Negative) Urine Ketones Negative (Negative) Urine Blood Negative (Negative) Urine Nitrite Negative (Negative) Urine Bilirubin Negative (Negative) Urine Urobilinogen <2.0 (<2.0) mg/dL Ur Leukocyte Esterase Moderate H (Negative) Urine RBC 1 (0-5) /hpf Urine WBC 6 H (0-5) /hpf Urine WBC Clumps Rare H (None) /hpf Ur Squamous Epith Cells <1 (0-4) /hpf Ur Transition Epith Cell <1 (0-1) /hpf Coronavirus (PCR) (Not Detectd) Disposition Clinical Impression: Upper respiratory infection Disposition: HOME SELF-CARE Condition: Good Instructions (If sedation given, give patient instructions): Upper Respiratory Infection (ED) Is patient prescribed a controlled substance at d/c from ED?: No Referrals: Fabrizio Contreras MD [Primary Care Provider] - 1-2 days Time of Disposition: 14:54
[2023-05-15 14:28] LABS: Appearance,Urine Clear (Clear); Bilirubin,Urine Negative (Negative); Blood,Urine Negative (Negative); Color,Urine Colorless; Glucose,Urine (UA) Negative (Negative); Ketones,Urine Negative (Negative); Leukocyte Esterase,Urine Moderate (Negative); Nitrite,Urine Negative (Negative); Protein,Urine Negative (Negative); RBC,Urine 1 /hpf (0-5); Specific Gravity,Urine 1.005 (1.001-1.035); Squamous Epithelial Cell,Urine <1 /hpf (0-4); Transitional Epi Cells,Urine <1 /hpf (0-1); Urobilinogen,Urine <2.0 mg/dL (<2.0); WBC,Urine 6 /hpf (0-5)
[2023-05-15 15:29] VITALS: BP 161/74; PULSE 62; RESP 18; TEMP 97.9
== END 2023-05-15 15:50 | disposition home or self-care (01) ==
LOC: EC 11:44
DX: J06.9 Acute upper respiratory infection, unspecified (principal); E07.9 Disorder of thyroid, unspecified; Z79.890 Hormone replacement therapy; Z20.822 Contact with and (suspected) exposure to COVID-19; Z88.2 Allergy status to sulfonamides; Z91.040 Latex allergy status
CPT/HCPCS: 36415; 71046; 76705; 80053; 81001; 82150; 83690; 85025; 87635; 96360; 99284